=== PATIENT | male | born 1970 | race Caucasian/White ===

== ENCOUNTER 2016-09-10 07:57 | Emergency (ER) | payer OTHER ==
[2016-09-10 08:58] LABS: RED BLOOD COUNT 4.71 M/UL (4.20-5.50); WHITE BLOOD COUNT 12.3 K/UL (4.5-11.0)
[2016-09-10 09:22] LABS: BUN/CREATININE RATIO 14 (0-10)
[2016-10-01] MEDS ORDERED: XANAX0.5 MG PO (05:02)
[2016-10-01] MEDS ORDERED: LIPITOR TAB 1010 MG PO (05:04)
[2016-10-01] MEDS ORDERED: ZESTRIL20 MG PO (05:04)
[2016-10-01] MEDS ORDERED: XANAX0.25 MG PO (05:04)
[2016-10-01] MEDS ORDERED: OXYCODONE HCL10 MG PO (05:04)
[2016-10-01] MEDS ORDERED: NORVASC5 MG PO (05:05)
[2016-10-07] MEDS ORDERED: ROCEPHIN 22 G/50 ML IV (17:15)
[2016-10-07] MEDS ORDERED: OXYCODONE-ACET1 EACH PO (17:16)
[2016-10-13] MEDS ORDERED: AUGMENTIN TAB875 MG PO (18:19)
== END 2016-09-10 11:25 | disposition home or self-care (01) ==
LOC: ER1 07:57
PROVIDERS: Emergency Medicine
DX: R10.9 Unspecified abdominal pain (principal); F17.200 Nicotine dependence, unspecified, uncomplicated; I10 Essential (primary) hypertension; E78.5 Hyperlipidemia, unspecified; Z79.899 Other long term (current) drug therapy
CPT/HCPCS: 36415; 80053; 81001; 82150; 83690; 85025; 96361; 96374; 96375; 96376; 99285; J2270; J2405; J7030; J7050; Q9962